=== PATIENT | male | born 1985 | race Two or more races ===

== ENCOUNTER 2018-07-18 23:44 | Emergency (ER) | payer BC ==
[~2018-07-18] VITALS: Ht 175.3 cm; Wt 70.3 kg
[2018-07-18 23:44] VITALS: BP 126/79
--- NOTE | 2018-07-18 23:44 | NUR ---
Jacqueline fagan in EDM - 07/19/18 at 0630 by [facility] ED Nurse Note: Pt was BIBA from home, c/o Suicide attempt, pt took unknown amount of Xanax and Aderal according to EMS report, possible b/c pt was broken down with girl friend.
--- NOTE | 2018-07-18 23:45 | NUR ---
ED Nurse Note: Pt was BIBA from home, c/o Suicide attempt, Pt's family called 911. pt took unknown amount of Xanax and Aderal according to EMS report, possible b/c pt was broken down with girl friend. Pt is A/O X4. Vital signs stable at this time. [employer] was at bed side, Pt was on hold with 5150 by [employer]. Pt was on cuff at this time.
--- NOTE | 2018-07-18 23:45 | NUR ---
ED Nurse Note: [employer] wanted to leave and removed pt's cuff. called security and family to continue monitor. Pt's emotionaly stable at this time, resting quietly and calm in bed . Family at bed side.
--- NOTE | 2018-07-18 23:58 | NUR ---
ED Nurse Note: Blood and urine sample collected and sent to Lab.
[2018-07-19 00:32] LABS: BASOPHILS % (AUTO) 0.8 % (0.0-2.0); EOSINOPHILS % (AUTO) 1.1 % (0.0-3.0); HEMATOCRIT 48.5 % (42.0-52.0); HEMOGLOBIN 17.4 G/DL (14.2-18.0); LYMPHOCYTES % (AUTO) 33.9 % (20.0-45.0); MEAN CORPUSCULAR VOLUME 89 FL (80-99); MONOCYTES % (AUTO) 6.5 % (1.0-10.0); NEUTROPHILS % (AUTO) 57.8 % (45.0-75.0); PLATELET COUNT 198 K/UL (150-450); RED BLOOD COUNT 5.44 M/UL (4.70-6.10); RED CELL DISTRIBUTION WIDTH 10.8 % (11.6-14.8); WHITE BLOOD COUNT 9.5 K/UL (4.8-10.8)
[2018-07-19 00:39] LABS: APPEARANCE,URINE CLEAR; BILIRUBIN, URINE NEGATIVE (NEGATIVE); GLUCOSE, URINE (UA) NEGATIVE (NEGATIVE); KETONES,URINE NEGATIVE (NEGATIVE); LEUKOCYTE ESTERASE ,URINE 1+ (NEGATIVE); NITRITE,URINE NEGATIVE (NEGATIVE); PH,URINE 6.5 (4.5-8.0); PROTEIN,URINE 1+ (NEGATIVE); UROBILINOGEN,URINE 1 MG/DL (0.0-1.0)
[2018-07-19 00:40] LABS: COLOR,URINE YELLOW
--- NOTE | 2018-07-19 00:41 | NUR ---
ED Nurse Note: Meds given as ordered. Girl friend / Smithharjinder at bed side, . Pt's Father and Mom at bed side. Pt's Father/ Bill . Pt has cleared from Medical side, waitng for Psychi Eval in AM.
[2018-07-19 00:54] LABS: ANION GAP 12 mmol/L (5-15); BLOOD UREA NITROGEN 14 mg/dL (7-18); CARBON DIOXIDE 25 MMOL/L (21-32); CHLORIDE 105 MMOL/L (98-107); POTASSIUM 3.4 MMOL/L (3.5-5.1); SODIUM 142 MMOL/L (136-145)
[2018-07-19 01:02] LABS: ALANINE AMINOTRANSFERASE 35 U/L (12-78); ALBUMIN 4.1 G/DL (3.4-5.0); ALBUMIN/GLOBULIN RATIO 1.3 (1.0-2.7); ALKALINE PHOSPHATASE 83 U/L (46-116); ASPARTATE AMINO TRANSFERASE 24 U/L (15-37); BILIRUBIN,TOTAL 0.8 MG/DL (0.2-1.0)
--- NOTE | 2018-07-19 02:01 | NUR ---
ED Nurse Note: Pt's girlfriend at bed side, pt resting quitly. VSS. will continue to monitor.
[2018-07-19 02:44] VITALS: BP 125/78
--- NOTE | 2018-07-19 04:34 | Emergency Room Report ---
History of Present Illness General Chief Complaint: Overdose Source: Patient, EMS Present Illness HPI 32-year-old male presents ED for evaluation. Brought in by EMS for overdose. Per EMS patient took multiple pills of Adderall and Xanax tonight. States he has been taking them all day. States he was not trying to hurt himself but he was feeling anxious. Per EMS patient sent a text to his friend's which was then reported to the police. Patient denies SI or HI. Denies hearing voices. States he has not been previously admitted to any psychiatric facility. Denies any history of depression. No other aggravating relieving factors. Denies any other associated symptoms Allergies: Coded Allergies: No Known Allergies (Unverified , 07/18/18) Patient History Past Medical History: psych hx Past Surgical History: none Pertinent Family History: none Social History: Reports: alcohol use, drug use; Denies: smoking Immunizations: UTD Reviewed Nursing Documentation: PMH: Agreed; PSxH: Agreed Nursing Documentation-PMH Past Medical History: No Stated History Review of Systems All Other Systems: negative except mentioned in HPI Physical Exam Vital Signs Date Time Temp Pulse Resp B/P (MAP) Pulse Ox O2 Delivery O2 Flow Rate FiO2 07/18/18 23:29 98.1 92 18 145/95 97 Room Air Sp02 EP Interpretation: reviewed, normal General Appearance: no apparent distress, alert, GCS 15, non-toxic Head: normocephalic, atraumatic Eyes: bilateral eye normal inspection, bilateral eye PERRL ENT: hearing grossly normal, normal pharynx, no angioedema, normal voice Neck: full range of motion, supple/symm/no masses Respiratory: chest non-tender, lungs clear, normal breath sounds, speaking full sentences Cardiovascular #1: regular rate, rhythm, no edema Cardiovascular #2: 2+ carotid (R), 2+ carotid (L), 2+ radial (R), 2+ radial (L) , 2+ dorsalis pedis (R), 2+ dorsalis pedis (L) Gastrointestinal: normal bowel sounds, non tender, soft, non-distended, no guarding, no rebound Rectal: deferred Genitourinary: normal inspection, no CVA tenderness Musculoskeletal: back normal, gait/station normal, normal range of motion, non- tender Neurologic: alert, oriented x3, responsive, motor strength/tone normal, sensory intact, speech normal Psychiatric: no suicidal/homicidal ideation, no delusions, anxious Reflexes: 3+ bicep (R), 3+ bicep (L), 3+ tricep (R), 3+ tricep (L), 3+ knee (R) , 3+ knee (L) Skin: normal color, no rash, warm/dry, well hydrated Lymphatic: no adenopathy Medical Decision Making Diagnostic Impression: Primary Impression: Drug overdose Qualified Codes: T50.904A - Poisoning by unspecified drugs, medicaments and biological substances, undetermined, initial encounter ER Course Hospital Course 32 yo M presents to ED for reported overdose on xanax and adderal Differential diagnoses include: Major depressive disorder, unspecified psychosis , EtOH abuse, drug abuse Clinical course Patient placed on stretcher. On one to one observation. After initial history and physical I ordered labs, U. tox Labs-electrolytes normal, aspirin/Tylenol levels normal, EtOH level normal, U. tox +multiple substances Patient persistently reiterates that he was not trying to hurt himself. states that the text message he sent did not state that he was suicidal. Parents at bedside states they do not believe patient is suicidal. I explained to the family and patient that he is on a 5150 hold. Patient will require psychiatry evaluation. Patient is medically cleared and pending psychiatric evaluation. i. I feel this is a highly complex case requiring extensive working including EKG/Rhythm strip, Xray/CT/US, Blood/urine lab work, repeat exams while in ED, and administration of strong opiates/narcotics for pain control, admission to hospital or close patient follow up. Labs Test 07/18/18 23:58 07/19/18 00:28 White Blood Count 9.5 K/UL (4.8-10.8) Red Blood Count 5.44 M/UL (4.70-6.10) Hemoglobin 17.4 G/DL (14.2-18.0) Hematocrit 48.5 % (42.0-52.0) Mean Corpuscular Volume 89 FL (80-99) Mean Corpuscular Hemoglobin 31.9 PG (27.0-31.0) Mean Corpuscular Hemoglobin Concent 35.8 G/DL (32.0-36.0) Red Cell Distribution Width 10.8 % (11.6-14.8) Platelet Count 198 K/UL (150-450) Mean Platelet Volume 7.7 FL (6.5-10.1) Neutrophils (%) (Auto) 57.8 % (45.0-75.0) Lymphocytes (%) (Auto) 33.9 % (20.0-45.0) Monocytes (%) (Auto) 6.5 % (1.0-10.0) Eosinophils (%) (Auto) 1.1 % (0.0-3.0) Basophils (%) (Auto) 0.8 % (0.0-2.0) Sodium Level 142 MMOL/L (136-145) Potassium Level 3.4 MMOL/L (3.5-5.1) Chloride Level 105 MMOL/L (98-107) Carbon Dioxide Level 25 MMOL/L (21-32) Anion Gap 12 mmol/L (5-15) Blood Urea Nitrogen 14 mg/dL (7-18) Creatinine 1.0 MG/DL (0.55-1.30) Estimat Glomerular Filtration Rate > 60 mL/min (>60) Glucose Level 97 MG/DL (74-106) Calcium Level 9.0 MG/DL (8.5-10.1) Total Bilirubin 0.8 MG/DL (0.2-1.0) Aspartate Amino Transf (AST/SGOT) 24 U/L (15-37) Alanine Aminotransferase (ALT/SGPT) 35 U/L (12-78) Alkaline Phosphatase 83 U/L (46-116) Total Protein 7.2 G/DL (6.4-8.2) Albumin 4.1 G/DL (3.4-5.0) Globulin 3.1 g/dL Albumin/Globulin Ratio 1.3 (1.0-2.7) Salicylates Level 2.2 ug/mL (2.8-20) Acetaminophen Level < 2 MCG/ML (10-30) Serum Alcohol < 3 mg/dL Urine Color Yellow Urine Appearance Clear Urine pH 6.5 (4.5-8.0) Urine Specific [place] 1.015 (1.005-1.035) Urine Protein 1+ (NEGATIVE) Urine Glucose (UA) Negative (NEGATIVE) Urine Ketones Negative (NEGATIVE) Urine Blood Negative (NEGATIVE) Urine Nitrite Negative (NEGATIVE) Urine Bilirubin Negative (NEGATIVE) Urine Urobilinogen 1 MG/DL (0.0-1.0) Urine Leukocyte Esterase 1+ (NEGATIVE) Urine RBC 0-2 /HPF (0 - 0) Urine WBC 0 /HPF (0 - 0) Urine Squamous Epithelial Cells None /LPF (NONE/OCC) Urine Bacteria None /HPF (NONE) Urine Mucus Few /LPF (NONE/OCC) Urine Opiates Screen Positive (NEGATIVE) Urine Barbiturates Screen Negative (NEGATIVE) Phencyclidine (PCP) Screen Negative (NEGATIVE) Urine Amphetamines Screen Positive (NEGATIVE) Urine Benzodiazepines Screen Positive (NEGATIVE) Urine Cocaine Screen Negative (NEGATIVE) Urine Marijuana (THC) Screen Positive (NEGATIVE) Last Vital Signs Date Time Temp Pulse Resp B/P (MAP) Pulse Ox O2 Delivery O2 Flow Rate FiO2 07/19/18 02:44 98.1 82 18 125/78 97 Room Air Status: improved Disposition: XFER TO PSYCH HOSP/UNIT Condition: Serious Referrals: NOT CHOSEN IPA/,REFERRING (PCP) Edward Dillon MD Jul 19, 2018 04:34
[2018-07-19 06:20] VITALS: BP 123/73
--- NOTE | 2018-07-19 06:30 | NUR ---
ED Nurse Note: Pt is on 5150, waiting for transfer to psychiatric hospital . No bed available at this time. Pt is A/O X 4. VSS. Pt shows more calm and stable at this time. Will continue to monitor.
--- NOTE | 2018-07-19 07:05 | NUR ---
ED Nurse Note: PT. IS STRIPPED DOWN AND PLACED ALL BELONGINGS IN CABINET 3
--- NOTE | 2018-07-19 07:07 | NUR ---
HAND-OFF: Report given to Nora/JODY for continue care. Pt is A/O X4. VSS.
--- NOTE | 2018-07-19 07:08 | NUR ---
ED Nurse Note: pt on bed sleeping with family at the bedside. no s/s of acute distressnoted at this time
[2018-07-19 07:09] VITALS: BP 125/72
--- NOTE | 2018-07-19 07:43 | NUR ---
ED Nurse Note: BREKAFAST TRAY GIVEN TO THE PT. PT. IS VERY CALM AND COOPERATIVE AT THIS TIME.
[2018-07-19 09:35] VITALS: BP 124/65
--- NOTE | 2018-07-19 09:36 | NUR ---
ED Nurse Note: father at the bedside
[2018-07-19 11:10] VITALS: BP 124/78
--- NOTE | 2018-07-19 11:15 | NUR ---
ED Nurse Note: TELEPHONE REPORT GIVEN TO JODY IRIZARRY FROM [facility]. PT. AND FAMILY MEMBERS AWARE OF THE PSYCH PLACEMENT
--- NOTE | 2018-07-19 11:40 | NUR ---
ED Nurse Note: [facility] CAME. ALL BELONGINGS WERE GIVEN BACK TO THE PATIENT. VSS. NO ACUTE S/S OF DISTRESS NOTED. ID ARMBAND AND IV ACCESS WERE REMOVED
[2018-07-19 11:41] VITALS: BP 124/78
== END 2018-07-19 11:43 ==
LOC: EDBD 23:44 → EMR 23:59
DX: T43.621A Poisoning by amphetamines, accidental (unintentional), initial encounter (principal); T42.4X1A Poisoning by benzodiazepines, accidental (unintentional), initial encounter; Y92.009 Unspecified place in unspecified non-institutional (private) residence as the place of occurrence of the external cause
CPT/HCPCS: 36415; 80053; 80307; 81003; 85025; 96360; 99285; G0480; 80329